=== PATIENT | female | born 1985 | race Hispanic/Latino ===

== ENCOUNTER 2017-04-02 23:26 | Emergency (ER) | payer MEDICAID, SELFPAY ==
[2017-04-03] MEDS ORDERED: Morphine 10 MG/ML VIAL ONE (00:38)
[2017-04-03] MEDS ORDERED: Ondansetron HCl/PF 4 MG/2 ML Vial ONE (00:38)
[2017-04-03 00:39] LABS: #Eosinphils 0.2 thou/uL (0.0-0.7); #Lymphocytes 2.1 thou/uL (1.20-3.40); #Monocytes 0.7 thou/uL (0.11-0.59); #Neutrophils 9.6 thou/uL (1.40-6.50); %Basophils 0.2 % (0.0-1.0); %Eosinophils 1.9 % (0.0-10.0); %Lymphocytes 16.9 % (21.0-51.0); %Monocytes 5.2 % (0.0-10.0); Hematocrit 43.5 % (36.0-47.0); Mean Platelet Volume 7.5 fL (7.4-10.4); Red Blood Cell (RBC) Count 4.82 mill/uL (4.20-5.40); White Blood Cell (WBC) Count 12.7 thou/uL (4.8-10.8)
[2017-04-03 01:00] LABS: ALT (SGPT) 43 U/L (8-55); AST (SGOT) 26 U/L (5-34); Alkaline Phosphatase 90 U/L (40-150); Anion Gap 17 mmol/L (10-20); BUN (Urea Nitrogen) 14 mg/dL (7.0-18.7); Bilirubin, Total 0.2 mg/dL (0.2-1.2); CK (CPK) 101 U/L (29-168); Calc. Creatinine Clearance 0 mL/min (70-130); Calcium 9.2 mg/dL (7.8-10.44); Carbon Dioxide 24 mmol/L (22-29); Chloride 103 mmol/L (98-107); Estimated GFR-MDRD 84; Globulin 3.6 g/dL (2.4-3.5); Lipase 28 U/L (8-78); Protein, Total 7.7 g/dL (6.0-8.3)
[2017-04-03 01:05] LABS: Troponin I Less than 0.010 ng/mL (< 0.028)
--- NOTE | 2017-04-03 09:06 | RAD ---
CHEST 1 VIEW PORTABLE: HISTORY: A 31-year-old female with a history of chest pain and epigastric pain for 1 hour with nausea. FINDINGS: Heart size is within normal limits. The lungs are clear. No pneumonia, edema, or pleural effusion or other acute process. IMPRESSION: No acute intrathoracic disease. POS: [facility]
--- NOTE | 2017-04-03 14:02 | ULT ---
PRELIMINARY REPORT/[facility]/EMERGENCY AFTER HOURS PROCEDURE: EXAM: US Abdomen Limited, Right Upper Quadrant CLINICAL HISTORY: 31 years old, female; Pain; Other: Upper abd pain TECHNIQUE: Real-time ultrasound of the right upper quadrant with image documentation. COMPARISON: No relevant prior studies available. FINDINGS: Liver: The hepatic parenchyma is slightly echogenic, possible diffuse fatty liver. No intrahepatic b ile duct dilation. Gallbladder: There are echogenic calculi within gallbladder lumen cholelithiasis with normal gallbla dder wall thickness and no pericholecystic fluid but the technologist noted a "slightly positive" sonographic Martines sign and therefore acute cholecystitis is a consideration. Common bile duct: Unremarkable as visualized. No stones. No dilation. Pancreas: Unremarkable as visualized. Right kidney: Unremarkable. No stones. No solid mass. No hydronephrosis. IMPRESSION: There are echogenic calculi within gallbladder lumen cholelithiasis with normal gallbladder wall thi ckness and no pericholecystic fluid but the technologist noted a "slightly positive" sonographic Mur phy sign and therefore acute cholecystitis is a consideration. Thank you for allowing us to participate in the care of your patient. Dictated and Authenticated by: Reji Anderson MD 04/03/2017 12:34 AM Central Time ([place] \\T\\ Rj) FINAL REPORT RIGHT UPPER QUADRANT ULTRASOUND: EMERGENT AFTER HOURS EXAM TIME: 12:05 a.m. DATE: 04/03/17. Multiple cholelithiasis. A slightly positive Martines's sign. No significant ductal dilatation. If there is concern for acute cholecystitis clinically, followup nuclear medicine hepatobiliary scan is suggested. POS: [facility]
--- NOTE | 2017-05-14 16:47 | EKG ---
Test Reason : Blood Pressure : / mmHG Vent. Rate : 089 BPM Atrial Rate : 089 BPM P-R Int : 148 ms QRS Dur : 094 ms QT Int : 382 ms P-R-T Axes : 050 027 032 degrees QTc Int : 464 ms Normal sinus rhythm Normal ECG Confirmed by ANDERSON SHELBY MD ([id number]), food expeditor LIDIA MEDINA ([id number]) on 05/14/2017 4:46:49 PM Referred By: Confirmed By:ANDERSON SHELBY MD
== END 2017-04-03 01:30 | disposition home or self-care (01) ==
LOC: ERS 23:26
DX: K80.20 Calculus of gallbladder without cholecystitis without obstruction (principal)
CPT/HCPCS: 36415; 71010; 76705; 80053; 82550; 82553; 83690; 84484; 85025; 93005; 96361; 96374; 96375; J2270; J2405

== ENCOUNTER 2017-04-04 07:02 | Inpatient (IN) | payer SELFPAY ==
[2017-04-04] MEDS ORDERED: Morphine 10 MG/ML VIAL ONE (07:21)
[2017-04-04] MEDS ORDERED: Ondansetron HCl/PF 4 MG/2 ML Vial ONE ×2 (07:21→23:26)
[2017-04-04 08:12] LABS: ALT (SGPT) 57 U/L (8-55); AST (SGOT) 54 U/L (5-34); Alkaline Phosphatase 86 U/L (40-150); Anion Gap 15 mmol/L (10-20); BUN (Urea Nitrogen) 11 mg/dL (7.0-18.7); Bilirubin, Total 0.2 mg/dL (0.2-1.2); Calc. Creatinine Clearance 0 mL/min (70-130); Calcium 8.5 mg/dL (7.8-10.44); Carbon Dioxide 20 mmol/L (22-29); Chloride 106 mmol/L (98-107); Estimated GFR-MDRD Greater than 90; Globulin 3.5 g/dL (2.4-3.5); Lipase 29 U/L (8-78); Protein, Total 7.4 g/dL (6.0-8.3)
[2017-04-04 08:21] LABS: #Basophils 0.1 thou/uL (0.0-0.2); #Eosinphils 0.2 thou/uL (0.0-0.7); #Lymphocytes 3.3 thou/uL (1.20-3.40); #Neutrophils 6.7 thou/uL (1.40-6.50); %Eosinophils 1.9 % (0.0-10.0); %Lymphocytes 29.5 % (21.0-51.0); %Monocytes 8.4 % (0.0-10.0); Hematocrit 45.6 % (36.0-47.0); Mean Platelet Volume 7.6 fL (7.4-10.4); Red Blood Cell (RBC) Count 4.99 mill/uL (4.20-5.40); White Blood Cell (WBC) Count 11.3 thou/uL (4.8-10.8)
[2017-04-04 08:44] LABS: PTT 32.2 SEC (22.9-36.1); Prothrombin Time 12.3 SEC (12.0-14.7)
[2017-04-04 08:59] LABS: Bilirubin Negative (Negative); Blood, Urine Negative (Negative); Glucose, Urine (Dipstick) Negative (Negative); Ketone, Urine Negative (Negative); Nitrite Negative (Negative); Protein, Urine (Dipstick) Negative (Neg-Trace); Urobilinogen 0.2 mg/dL (0.2-1.0)
[2017-04-04] MEDS ORDERED: MEROPENEM 1 GM/50 ML 1 GM in Premix Bag 1 BAG IVPB SCH ×2 (09:15→23:45)
[2017-04-04 10:50] VITALS: BMI 28.3
[2017-04-04] MEDS ORDERED: FLU VACC QS2017-18 36 mo. & older 0.5 ML SYRINGE IM ONE (11:30)
[2017-04-04] MEDS ORDERED: Lidocaine 1% w/Epinephrine 1:200K 30 ML VIAL ONE (21:54)
[2017-04-04] MEDS ORDERED: Bupivacaine 0.25% HCL 30 ML VIAL ONE (21:54)
[2017-04-04] MEDS ORDERED: Fentanyl 100 MCG/2 ML VIAL ONE (23:17)
[2017-04-04] MEDS ORDERED: Propofol 200 MG/20 ML VIAL ONE (23:26)
[2017-04-04] MEDS ORDERED: ePHEDrine/0.9% NaCl/PF SYRINGE 50 mg/10 ml ONE (23:26)
[2017-04-04] MEDS ORDERED: Dexamethasone 20 MG/5 ML VIAL ONE (23:26)
[2017-04-04] MEDS ORDERED: Ketorolac Tromethamine 30 MG/ML VIAL ONE (23:26)
[2017-04-04] MEDS ORDERED: Lidocaine 2% PF 10 ML AMP (For Epidural Use) ONE (23:26)
[2017-04-04] MEDS ORDERED: Glycopyrrolate 0.2 MG/ML 5 ML SYRINGE ONE (23:26)
[2017-04-04] MEDS ORDERED: Iothalamate Meglumine 60% 50 ML VIAL FS ONE (23:55)
[2017-04-05] MEDS ORDERED: HYDROmorphone 2 MG/ML VIAL SLOW IVP PRN (00:55)
[2017-04-05] MEDS ORDERED: Promethazine HCl 25 MG/ML VIAL SLOW IVP PRN (00:55)
[2017-04-05] MEDS ORDERED: Ondansetron HCl/PF 4 MG/2 ML Vial IVP PRN ×2 (00:55→01:10)
[2017-04-05] MEDS ORDERED: Promethazine HCl 25 MG/ML VIAL IM PRN (00:55)
[2017-04-05] MEDS ORDERED: D5 1/2 NS w/20 mEq KCL 1,000 ML ONE (01:10)
[2017-04-05] MEDS ORDERED: Morphine PF 1 MG/ML SYR IVP PRN ×2 (01:11→01:12)
[2017-04-05] MEDS ORDERED: Morphine 4 MG/ML VIAL SLOW IVP PRN ×2 (01:13)
[2017-04-05] MEDS ORDERED: HYDROcodone/Acetaminophen 7.5/325 mg Tablet PO PRN (01:14)
[2017-04-05 01:35] LABS: ALT (SGPT) 112 U/L (8-55); AST (SGOT) 101 U/L (5-34); Alkaline Phosphatase 74 U/L (40-150); Anion Gap 10 mmol/L (10-20); BUN (Urea Nitrogen) 7 mg/dL (7.0-18.7); Bilirubin, Total 0.4 mg/dL (0.2-1.2); Calc. Creatinine Clearance 123 mL/min (70-130); Calcium 8.3 mg/dL (7.8-10.44); Carbon Dioxide 25 mmol/L (22-29); Chloride 106 mmol/L (98-107); Estimated GFR-MDRD Greater than 90; Globulin 3.2 g/dL (2.4-3.5); Protein, Total 6.8 g/dL (6.0-8.3)
[2017-04-05] MEDS: D5 1/2 NS w/20 mEq KCL 1,000 ML IV SCH ×3 (01:40→19:30)
[2017-04-05] MEDS: HYDROcodone/Acetaminophen 7.5/325 mg Tablet PO PRN ×2 (05:05→15:22)
--- NOTE | 2017-04-05 05:52 | HP ---
CHIEF COMPLAINT: Abdominal pain. HISTORY: Ms. David is a 31-year-old woman with a 2-day history of unrelenting right upper quadrant pain. The pain gets worsened and better, but has never completely gone away since its onset. She has had a couple of episodes of similar pain in the past, but it has always gone away on its own. S he has not really been able to eat because of nausea and has had a couple episodes of vomiting, alth ough this has stopped. She denies any fevers, chills, jaundice, or icterus. She cannot identify an y triggers or alleviators. The pain is sharp and located in the right upper quadrant. It does not radiate and has always been in the same spot. No ill contacts or unusual ingestions. PAST MEDICAL HISTORY: None. PAST SURGICAL HISTORY: x2. FAMILY HISTORY: Diabetes and hypertension. ALLERGIES: No known drug allergies. OUTPATIENT MEDICATIONS: None. She did try taking Tums, which seemed to help a little bit. She came to the emergency room when the pain started and had a gallbladder ultrasound done, which sh owed gallstones. She was told to follow up as an outpatient with a surgeon since her labs were norm al at that time. She has returned twice to the ER since that time and on her second return, she was noted to have mild elevation of her AST, ALT and white blood cell count, so surgery was consulted a nd she was admitted. Since being admitted to the hospital, her pain has improved with medication. PHYSICAL EXAMINATION: VITAL SIGNS: The patient is afebrile, normal vital signs. HEENT: Unremarkable. She is not jaundiced or icteric. NECK: Supple without lymphadenopathy or thyroid nodules. HEART: Regular in its rate and rhythm without murmurs, rubs, or gallops. LUNGS: Clear to auscultation bilaterally. ABDOMEN: Soft and nondistended. She is tender to palpation in the right upper quadrant without rig idity, rebound, or guarding. No palpable masses or hernias. She does have a positive Martines's sign . EXTREMITIES: Warm and well perfused without edema. NEUROLOGIC: No focal deficits. PSYCHIATRIC: Alert, oriented, and appropriate. LABORATORY AND X-RAY FINDINGS: As previously stated, her white count, AST and ALT are mildly elevat ed. Other labs are unremarkable. An ultrasound showed gallstones and a dilated gallbladder with a slightly positive Martines's sign. Her common bile duct was normal in caliber. ASSESSMENT: Cholelithiasis and cholecystitis with elevation of LFTs. PLAN: Laparoscopic cholecystectomy with intraoperative cholangiogram to evaluate for possible adrienne docholithiasis. The patient's diagnosis and recommended treatment plan were discussed with her and her family in detail using a education program associate phone. Inherent risks of the surgery were discussed . These include but are not limited to bleeding, infection, risks of anesthesia, damage to nearby s tructures including bowel, liver, and bile duct and need for open operation or other procedures such as ERCP. She understands and accepts these risks and wishes to proceed. All of her questions were answered. She is on scheduled antibiotics ordered from the ER and we will continue these in the pe rioperative period.
[2017-04-05 06:05] LABS: ALT (SGPT) 124 U/L (8-55); AST (SGOT) 93 U/L (5-34); Alkaline Phosphatase 82 U/L (40-150); Anion Gap 14 mmol/L (10-20); BUN (Urea Nitrogen) 8 mg/dL (7.0-18.7); Bilirubin, Total 0.3 mg/dL (0.2-1.2); Calc. Creatinine Clearance 123 mL/min (70-130); Calcium 8.5 mg/dL (7.8-10.44); Carbon Dioxide 19 mmol/L (22-29); Chloride 106 mmol/L (98-107); Estimated GFR-MDRD Greater than 90; Globulin 3.6 g/dL (2.4-3.5); Protein, Total 7.5 g/dL (6.0-8.3)
--- NOTE | 2017-04-05 09:25 | RAD ---
INTRAOPERATIVE CHOLANGIOGRAM: History: 31-year-old female with history of cholecystitis for intraoperative cholangiogram. FINDINGS: Contrast media was injected through the cystic duct remnant. Common bile duct and common hepatic evette ts are minimally dilated. There does appear to be at least one, and possibly two, persistent filling defects in the distal common bile duct, evidence for distal common bile duct calculus. IMPRESSION: Distal common bile duct calculus with proximal obstruction and dilatation. POS: [facility]
[2017-04-05] MEDS: MEROPENEM 1 GM/50 ML 1 GM in Premix Bag 1 BAG IVPB SCH ×3 (09:26→23:51)
--- NOTE | 2017-04-05 16:26 | CON ---
DATE OF CONSULTATION: 04/05/2017 REQUESTING PHYSICIAN: Mathieu Blanco M.D. REASON FOR CONSULTATION: Choledocholithiasis. HISTORY OF PRESENT ILLNESS: Amanda David is a very pleasant 31-year-old woman with a past history of two C-sections, but otherwise healthy. She was admitted to the hospital overnight. She has had recurrent episodic severe right upper quadrant pain over the past few months, but over the past 2-3 days, she had been having worsening progressive symptoms which were unrelenting. She presented and was found to have elevated LFTs. Preoperative abdominal ultrasound showed gallstones with normal ap pearing common bile duct. Dr. Blanco took her last night for laparoscopic cholecystectomy. The pr ocedure went well without complications. However, intraoperative cholangiogram did demonstrate 1 or possibly 2 small filling defects in the distal common bile duct consistent with retained stones. S he was found to have multiple gallstones in the gallbladder itself. Today she is a bit sore. Her p ain has improved from presentation. No nausea today. She is tolerating a clear liquid diet; howeve r, her LFTs have remained mildly elevated. We are consulted for consideration of ERCP due to the ch oledocholithiasis. REVIEW OF SYSTEMS: Full review of systems including constitutional, head, eyes, ears, nose, throat, GI, , cardiovascular, respiratory, musculoskeletal, and neurologic systems is negative except as noted in the HPI. I spoke with the patient via animal control supervisor phone. PAST MEDICAL HISTORY: x2. ALLERGIES: No known drug allergies. MEDICATIONS: Meropenem IV, [place] p.r.n. FAMILY HISTORY: Positive for diabetes and hypertension. PHYSICAL EXAMINATION: VITAL SIGNS: Temperature 98.4, pulse 75, blood pressure 95/60, 95% oxygen saturation on room air. GENERAL: A 31-year-old obese woman lying in bed comfortably in no distress. SKIN: No jaundice, no rash visible or palpable. EYES: No scleral icterus. Extraocular movements intact. ENT: Mucous membranes moist, no oral lesions. LYMPH: No submandibular, supraclavicular lymphadenopathy. THYROID: Nontender to palpation. HEART: Regular rate and rhythm. LUNGS: Clear to auscultation bilaterally. ABDOMEN: Bowel sounds present, soft. Some mild diffuse tenderness to palpation throughout. No gua rding or rebound tenderness. Surgical sites are well dressed and healing well. EXTREMITIES: No peripheral edema. VESSELS: Radial pulses 2+ bilaterally. NEUROLOGICAL: Cranial nerves II-XII intact bilaterally. No focal deficits. LABORATORY STUDIES: WBC 11.3, hemoglobin 14.8, platelets 224. Sodium 135, potassium 4.0, BUN 8, cr eatinine 0.72. INR 0.9, lipase only 29. test negative. Total bilirubin 0.3, alkaline ph osphatase 82, AST elevated at 93, ALT 124, albumin 3.9. IMAGING STUDIES: Preoperative abdominal ultrasound demonstrated gallstones in the gallbladder, norm al common bile duct. Intraoperative cholangiogram from last night demonstrated distal common bile d uct filling defect representing 1-2 small stones with some proximal CBD dilation. ASSESSMENT AND PLAN: Choledocholithiasis. I had a long discussion with the patient today via a [employer] customer technical services manager phone regarding her intraoperative cholangiogram findings. Given those findings as well as the persistent mild elevation of LFTs, I do have a high suspicion for choledocholithiasis. ERCP is indicated. We discussed the benefits and also risks of the procedure including post-ERCP p ancreatitis. The patient desires to proceed. We will plan for ERCP tomorrow. Please have her n.p. o. after midnight. Thank you for the consultation. Please call back with questions or concerns.
[2017-04-06] MEDS: D5 1/2 NS w/20 mEq KCL 1,000 ML IV SCH ×3 (05:14→18:11)
[2017-04-06 05:16] LABS: #Lymphocytes 2.5 thou/uL (1.20-3.40); #Monocytes 0.8 thou/uL (0.11-0.59); #Neutrophils 9.1 thou/uL (1.40-6.50); %Basophils 0.4 % (0.0-1.0); %Eosinophils 0.2 % (0.0-10.0); %Monocytes 6.2 % (0.0-10.0); Hematocrit 39.6 % (36.0-47.0); Mean Platelet Volume 7.6 fL (7.4-10.4); Red Blood Cell (RBC) Count 4.32 mill/uL (4.20-5.40); White Blood Cell (WBC) Count 12.4 thou/uL (4.8-10.8)
[2017-04-06 05:35] LABS: ALT (SGPT) 160 U/L (8-55); AST (SGOT) 71 U/L (5-34); Alkaline Phosphatase 84 U/L (40-150); Anion Gap 9 mmol/L (10-20); BUN (Urea Nitrogen) 7 mg/dL (7.0-18.7); Bilirubin, Total 0.3 mg/dL (0.2-1.2); Calc. Creatinine Clearance 132 mL/min (70-130); Calcium 8.3 mg/dL (7.8-10.44); Carbon Dioxide 25 mmol/L (22-29); Chloride 108 mmol/L (98-107); Estimated GFR-MDRD Greater than 90; Lipase 29 U/L (8-78); Protein, Total 6.6 g/dL (6.0-8.3)
--- NOTE | 2017-04-06 06:48 | OP ---
DATE OF PROCEDURE: 04/04/2017 PROCEDURE: Laparoscopic cholecystectomy with intraoperative cholangiogram. PREOPERATIVE DIAGNOSES: Cholelithiasis and cholecystitis. POSTOPERATIVE DIAGNOSES: Cholelithiasis, cholecystitis, and possible choledocholithiasis. HISTORY OF PRESENT ILLNESS: Ms. David is a 31-year-old woman who presented to the emergency room wi th right upper quadrant pain and gallstones. She has had unrelenting pain for the past 3 days as wel l as nausea and some vomiting. Her LFTs were slightly elevated on her return to the emergency room o n the day of her operation. She was recommended to undergo laparoscopic cholecystectomy for symptoma tic relief with cholangiogram due to the mild elevation of her LFTs. PROCEDURE IN DETAIL: After informed consent was obtained and appropriate preoperative antibiotics co ntinued, the patient was taken to the operating room where she was placed in supine position and gene ral endotracheal anesthesia was administered. She was prepped and draped in a standard sterile fashi on and local anesthesia was infused to the skin and subcutaneous tissues at the level of the umbilicu s. A transverse skin incision was made. The fascia was elevated and a Veress needle placed into the abdominal cavity under direct vision without difficulty. Opening pressure was less than 5 and carbo n dioxide gas insufflated to an intra-abdominal pressure of 15, which the patient tolerated well. Th e Veress needle was withdrawn and a [place] port advanced into the abdominal cavity under direct vi darleen of the laparoscope. There was no evidence of Veress needle or of trocar injury. Local anesthes ia was infused to the skin and subcutaneous tissues at the epigastric, right upper quadrant, and righ t lateral abdominal sites, and the gallbladder was grasped and retracted superiorly. This was disten ded, but without significant adhesions. Infundibulum was identified, grasped, and retracted laterall y. The serosa was stripped inferiorly and the cystic duct and artery dissected free circumferentiall y and clipped and an incision was made in the cystic duct inferior to the clip and cholangiogram cath eter introduced into the cystic duct and secured with a clamp. A cholangiogram was obtained, which s howed a good length of cystic duct and a slightly dilated ductal system with initially no flow into t he duodenum and it is somewhat difficult to inject the contrast. Once the duct filled with contrast, there was a small amount of flow into the duodenum, but very little. Magnification views were obtai lawanda of the distal common bile duct and there was some irregularity there, it was not entirely clear w hether this represented a filling defect or just stenosis of the bile duct. Glucagon was administere d and an additional cholangiogram obtained. At this time, there was more contrast in the duodenum, b ut still not a normal amount and emptying was quite slow. The irregularity in the distal common bile duct , so it was felt that she may very well have small retained stones. The cholangiogram cat heter and clamp were removed, the cystic duct clipped inferior to the incision, and the cystic duct d ivided between this and the upper clip. The cystic artery was likewise divided and the gallbladder d issected free of the gallbladder bed using hook electrocautery. The gallbladder was quite distended and friable and did tear off the gallbladder bed somewhat, but oozing from the gallbladder bed was ea sily able to be controlled with electrocautery. The gallbladder was completely removed from the gall bladder bed, placed into an EndoCatch bag and drawn out through the epigastric incision. The operati ve site was irrigated to clear and hemostasis verified. The removed and the fascial defect cristian sed with a 0 Vicryl suture on a GraNee needle with excellent technical result. The right upper quadr ant and right lateral trocars were removed and hemostasis verified. Carbon dioxide gas was allowed t o desufflate through the umbilical trocar which was then removed. All skin incisions were closed wit h 4-0 subcuticular Monocryl sutures and Dermabond dressings. Estimated blood loss was minimal. Ther e were no complications. SPECIMEN: Gallbladder and contents.
[2017-04-06] MEDS: MEROPENEM 1 GM/50 ML 1 GM in Premix Bag 1 BAG IVPB SCH ×3 (09:09→23:27)
[2017-04-06] MEDS ORDERED: Iothalamate Meglumine 60% 50 ML VIAL FS ONE (13:29)
[2017-04-06] MEDS ORDERED: Fentanyl 100 MCG/2 ML VIAL ONE (13:33)
[2017-04-06] MEDS ORDERED: Midazolam HCl 2 mg/2 ml Vial ONE (13:33)
[2017-04-06] MEDS ORDERED: Propofol 200 MG/20 ML VIAL ONE (13:49)
[2017-04-06] MEDS ORDERED: Succinylcholine Chloride 20 MG/ML 10 ml SYRINGE FS ONE (13:49)
[2017-04-06] MEDS ORDERED: Lidocaine 1% PF 5 ML VIAL ONE (13:49)
[2017-04-06] MEDS ORDERED: Ondansetron HCl/PF 4 MG/2 ML Vial ONE (13:49)
--- NOTE | 2017-04-06 14:31 | OP ---
PREOPERATIVE DIAGNOSIS: Choledocholithiasis. PROCEDURE: After informed consent was obtained, the patient was placed in the left lateral decubitus position. Anesthesia was administered per the Anesthesia Department. Forward-viewing endoscope was inserted into the esophagus under direct visualization with ease and passed to the second portion of the duodenum with ease. No mucosal abnormalities were noted. A tapered-tip cannula was inserted in to the common duct and a cholangiogram revealed a filling defect. A sphincterotomy was performed and the duct was swept with a 12 mm balloon revealing the stone. Occlusion cholangiogram showed no furt her filling defects. ASSESSMENT: 1. Choledocholithiasis. 2. Status post sphincterotomy and stone extraction. RECOMMENDATIONS: Recheck LFTs.
--- NOTE | 2017-04-06 14:48 | RAD ---
ERCP: 04/06/2017 HISTORY: Filling defect noted within the distal common bile duct on intraoperative cholangiogram. FINDINGS: A single view from an ERCP is provided. There appears to be a balloon inflated in the distal CBD, wh ich is thus not opacified with contrast media and thus not well assessed. There is no contrast media in the duodenum. The opacified CBD is otherwise unremarkable. IMPRESSION: Findings suggesting a balloon inflated within the distal common bile duct. POS: [facility]
[2017-04-06] MEDS: HYDROcodone/Acetaminophen 7.5/325 mg Tablet PO PRN (18:35)
[2017-04-07] MEDS: D5 1/2 NS w/20 mEq KCL 1,000 ML IV SCH ×2 (03:57→06:19)
[2017-04-07 04:30] VITALS: TEMP 97.9
[2017-04-07 05:17] LABS: ALT (SGPT) 128 U/L (8-55); AST (SGOT) 45 U/L (5-34); Alkaline Phosphatase 98 U/L (40-150); Anion Gap 8 mmol/L (10-20); BUN (Urea Nitrogen) 6 mg/dL (7.0-18.7); Bilirubin, Total 0.3 mg/dL (0.2-1.2); Calc. Creatinine Clearance 126 mL/min (70-130); Calcium 8.4 mg/dL (7.8-10.44); Carbon Dioxide 27 mmol/L (22-29); Chloride 107 mmol/L (98-107); Estimated GFR-MDRD Greater than 90; Lipase 38 U/L (8-78); Protein, Total 6.6 g/dL (6.0-8.3)
[2017-04-07 08:45] VITALS: BP 103/69
[2017-04-07] MEDS: MEROPENEM 1 GM/50 ML 1 GM in Premix Bag 1 BAG IVPB SCH (09:41)
--- NOTE | 2017-04-07 12:23 | DIS ---
DATE OF ADMISSION: 04/04/2017 DATE OF DISCHARGE: 04/07/2017 FINAL DIAGNOSES: 1. Cholelithiasis, cholecystitis. 2. Choledocholithiasis. HISTORY: Ms. David is a 31-year-old woman who presented to the emergency room with persistent right upper quadrant pain for 3 days' time and a mild elevation in her LFTs. A gallbladder ultrasound was positive for gallstones and recommendation was made to proceed with laparoscopic cholecystectomy. T his was performed on 04/05/2017 without events, but there was a possible filling defect in the distal common bile duct and very sluggish flow into the duodenum. Gastroenterology was consulted and an ER CP was performed on 04/06/2017 with extraction of a common bile duct stone. She recovered well posto peratively. Her LFTs were better and her lipase is normal. She is tolerating a diet and afebrile wi th normal vital signs. Her abdomen is soft, nontender, nondistended and her laparoscopic incisions a re healing well. She is discharged to home with follow up in the [facility] in 2 weeks' time. DISCHARGE MEDICATIONS: Include [place] 7.5/325 one to two p.o. q.4 hours p.r.n. pain, #15 was dispense d with 1 refill for #15.
== END 2017-04-07 11:45 | disposition home or self-care (01) | DRG 419 ==
LOC: ERS 07:02 → SURG B 08:54
PROVIDERS: ADMIT Surgery; ATTEND Surgery
PROC: 0FT44ZZ Resection of Gallbladder, Percutaneous Endoscopic Approach (ICD-10-PCS; principal; 2017-04-04)
PROC: BF130ZZ Fluoroscopy of Gallbladder and Bile Ducts using High Osmolar Contrast (ICD-10-PCS; 2017-04-04)
PROC: 0FC98ZZ Extirpation of Matter from Common Bile Duct, Via Natural or Artificial Opening Endoscopic (ICD-10-PCS; 2017-04-06)
DX: K80.44 Calculus of bile duct with chronic cholecystitis without obstruction (principal)
CPT/HCPCS: 36415; 47532; 74330; 80053; 81003; 83690; 84703; 85025; 85610; 85730; 88304; 93005; 96361; 96365; 96375; A4216; J1100; J1170; J1610; J1885; J2001; J2250; J2270; J2405; J2704; J3010; Q9961; S0020